=== PATIENT | female | born 1960 | race Caucasian/White ===

== ENCOUNTER → 2016-05-31 | Outpatient (CLI) | payer BC ==
[~2016-05-31] MED LIST: ASPI325T PO; COMMODE 3-IN-11 MIS; ENOX40P SQ; HYDR-3366 PO; SOMA350T PO; SUBO2MIS SL; WALKER WHEELS/F1 MIS; XANA2TAB2 PO; Z.0.NO CURRENT MEDS
--- NOTE | 2016-05-31 11:40 | RADRPT ---
EXAM DATE/TIME: 05/31/2016 11:04 [facility] COMPARISON: No previous studies available for comparison. INDICATIONS : Evaluate for pnuemothorax, pneumonia, or communicable diseases. Pre op for hip replacement. MEDICAL HISTORY : None. SURGICAL HISTORY : None. ENCOUNTER: Initial ACUITY: 1 day PAIN SCORE: 0/10 LOCATION: Bilateral chest FINDINGS: PA and lateral views of the chest demonstrate the lungs to be symmetrically aerated without evidence of mass, infiltrate or effusion. The cardiomediastinal contours are unremarkable. Osseous structure s are intact. CONCLUSION: No acute disease. Fareed Sesay MD FACR on May 31, 2016 at 11:38 Board Certified Radiologist. This report was verified electronically.
--- NOTE | 2016-06-01 10:46 | EKG ---
Date Performed: 05/31/2016 Time Performed: 12:08:48 PTAGE: 55 years EKG: Sinus bradycardia. Normal ECG except for rate NO PREVIOUS TRACING DOCTOR: Robles Brown Interpretating Date/Time 06/01/2016 10:44:12
== END ==
LOC: HRAD 10:39
PROVIDERS: ATTEND Orthopaedic Surgery
DX: Z01.810 Encounter for preprocedural cardiovascular examination (principal); R00.1 Bradycardia, unspecified
CPT/HCPCS: 71020; 93005

== ENCOUNTER 2016-06-06 14:54 | Inpatient (IN) | payer BC ==
[~2016-06-06] VITALS: Ht 152.4 cm; Wt 92.6 kg
[~2016-06-06 14:54] MED LIST changes: -ASPI325T PO; -COMMODE 3-IN-11 MIS; -ENOX40P SQ; -HYDR-3366 PO; -SUBO2MIS SL; -WALKER WHEELS/F1 MIS; -Z.0.NO CURRENT MEDS
[2016-06-07] MEDS ORDERED: ceFAZolin 2 GM PREMIX 50 ML ONE (10:46)
[2016-06-07] MEDS ORDERED: SUBO2MIS SL (10:47)
[2016-06-07] MEDS ORDERED: SODIUM CHLOR 0.9% 250 ML INJ 250 ML ONE (10:47)
[2016-06-07] MEDS ORDERED: VANCOMYCIN HCL 1000 MG VIAL ONE (10:47)
[2016-06-07 10:52] VITALS: BP 183/97; PULSE 80; RESP 20; TEMP 97.1; O2SAT 100
[2016-06-07] MEDS ORDERED: DEXAMETHASONE SOD PHOS 20 MG/5 ML VIAL ONE (10:57)
[2016-06-07] MEDS: POVIDONE IODINE 7.5% SCRUB 118 ML BOTTLE TOP SCH (11:00)
[2016-06-07] MEDS ORDERED: FAMOTIDINE 20 MG/2 ML VIAL ONE ×2 (11:44→12:30)
[2016-06-07] MEDS ORDERED: VANCOMYCIN 1000 MG/NS 250 ML (for <70 kg) IV SCH ×2 (11:45)
[2016-06-07] MEDS ORDERED: ceFAZolin 2 GM PREMIX 50 ML IV SCH (11:45)
[2016-06-07] MEDS ORDERED: MIDAZOLAM HCL 5 MG/5 ML VIAL ONE (11:49)
[2016-06-07] MEDS ORDERED: PROPOFOL 200 MG/20 ML AMP IV ONE (12:14)
[2016-06-07] MEDS ORDERED: NEOSTIGMINE 3 MG/3 ML SYR IV ONE (12:14)
[2016-06-07] MEDS ORDERED: ONDANSETRON HCL 4 MG/2 ML VIAL IV PUSH ONE (12:14)
[2016-06-07] MEDS ORDERED: LACTATED RINGER'S 1000 ML INJ 1,000 ML IV ONE (12:14)
[2016-06-07] MEDS ORDERED: ACETAMINOPHEN 1000 MG/100 ML VIAL IV ONE (12:29)
[2016-06-07] MEDS ORDERED: fentaNYL CITRATE 250 MCG/5 ML AMP ONE ×2 (12:30→13:07)
[2016-06-07] MEDS ORDERED: DEXAMETHASONE SOD PHOS 20 MG/5 ML VIAL IV SCH (12:45)
[2016-06-07] MEDS: EXPAREL PERI-ARTICULAR INJECTION (TOTAL VOL. 60 ML) P-ARTICULR SCH ×4 (13:00→13:27)
[2016-06-07] MEDS: TRANEXAMIC ACID INJ 906 MG in SODIUM CHLORIDE 0.9% INJ 100 ML IV SCH ×2 (13:00→13:02)
[2016-06-07] MEDS ORDERED: KETAMINE HCL 500 MG/5 ML VIAL ONE (13:07)
[2016-06-07] MEDS ORDERED: GENTAMICIN SULFATE 80 MG/2 ML VIAL ONE (13:08)
[2016-06-07] MEDS ORDERED: diphenhydrAMINE HCL 50 MG/ML VIAL IV PRN (14:30)
[2016-06-07] MEDS ORDERED: MAGNESIUM HYDROXIDE SUSP 30 ML CUP PO PRN (14:30)
[2016-06-07] MEDS ORDERED: Post-op Orders (for Pharmacy) MISC XX ONE (14:30)
[2016-06-07] MEDS ORDERED: CARISOPRODOL 350 MG TAB PO PRN (14:30)
[2016-06-07] MEDS ORDERED: ONDANSETRON HCL 4 MG/2 ML VIAL IVP PRN (14:30)
[2016-06-07] MEDS ORDERED: ALUMINUM/MAGNESIUM/SIMETH 30 ML CUP PO PRN (14:30)
[2016-06-07] MEDS ORDERED: NALOXONE HCL 0.4 MG/ML AMP IV PRN (14:30)
[2016-06-07] MEDS ORDERED: MORPHINE SULFATE 4 MG/ML INJ IV PUSH PRN (14:30)
[2016-06-07] MEDS ORDERED: ZOLPIDEM TARTRATE 5 MG TAB PO PRN (14:30)
[2016-06-07] MEDS ORDERED: BISACODYL 10 MG SUPP PR PRN (14:30)
[2016-06-07] MEDS ORDERED: SODIUM CHLORIDE 0.9% FLUSH 5 ML FLUSH IVF PRN (14:30)
--- NOTE | 2016-06-07 14:32 | PD.OP ---
cc: Fawad James MD Operative Report Date of Surgery: Jun 07, 2016 Preoperative Diagnosis: Right hip severe osteoarthritis Postoperative Diagnosis: Same Procedure: Right total hip arthroplasty, posterior approach Anesthesia: Gen. Surgeon: Fawad James Pen Or Pencil Assembly Machine Operator(s): WALDO Felder The surgical procedure was assisted by my Advanced Registered Nurse Practitioner. My MILLINERY SALESPERSON presence was necessary throughout this case for the manipulation and positioning of the surgical extremity. My MILLINERY SALESPERSON was assisting me throughout the duration of this procedure. The skill set of an Advance Registered Nurse Practitioner was medically necessary to complete this procedure. During the surgical case, the surgical services asst was working at the back table and the Advance Registered Nurse Practitioner was directly assisting me. Operation and Findings: IMPLANT DESCRIPTION: 1. Corail femoral stem size 11, no collar, standard offset. 2. Gription acetabulum, 52, no hole, with +4, 10 elevated ALTRX liner. 3, ceramic femoral head, 36, +1.5 ESTIMATED BLOOD LOSS: 300 cc. JUSTIFICATION FOR PROCEDURE: This patient has failed conservative management of her right hip osteoarthritis. See the conservative measures pathway form that is in the chart describing the nonoperative measures that were undertaken prior to consideration of surgical management. The patient understands the risks of surgery include but are not limited to injury to nerves, blood vessels, bleeding , infection, leg length discrepancy, continued pain, inability to ambulate, DVT , pulmonary embolus, pneumonia, stroke, heart attack, and . PROCEDURE: The patient was brought back to the operative theatre. Adequate anesthesia was obtained. The patient received intravenous Ancef and vancomycin. The patient was carefully placed on the operative table in the lateral decubitus position with an axillary roll and a well-padded down leg. The lower extremity was prepped and draped in the usual sterile fashion. We proceeded with a standard curvilinear incision centered around the tip of the greater trochanter. We then dissected through the deep fascia and placed a Charnley retractor protecting the sciatic nerve. The greater trochanteric bursa was reflected. We then incised through the piriformis attachment and tagged this with a #2 FiberWire. We then incised through the capsule in a T- shaped fashion and tagged this with a #2 FiberWire as well. An osteotomy was performed through the femoral neck, and the head was removed and inspected. It was found to have severe osteoarthritis. Remnants of the labrum were resected We then reamed the acetabulum up to a size 52. We trialed this acetabulum and then placed the final component into the appropriate anteversion and inclination. A manhole cover was applied. We then applied the degree elevated liner in the posterior superior position. The proximal femur was prepared with a rongeur, then a box osteotome, then a canal finder followed by a lateralizing reamer. We sequentially broached the proximal femur. We calcar planed the proximal femur and irrigated removing any remnants of the bone. We trialed the hip with the broach in place. The final femoral stem was impacted into position. Leg lengths were evaluated. We evaluated stability of the hip with the hip in the "position of sleep" and the hip flexed up to 90 and internally rotated. We additionally tested both a "shuck" test and hip extension, confirming there was no undue tension while flexing the knee to 90 during full hip extension. The final bipolar head was impacted and the hip was reduced. Once again we irrigated. We then repaired the capsule and the piriformis with the FiberWire suture. The deep fascia was closed with a #2 Stratafix, followed by 2-0 Vicryl in the skin and jesus. The post-op plan is to weight-bear as tolerated. We will follow posterior total hip precautions, including the use of a canvas knee splint. DVT prophylaxis will be performed with Nuzhat, CHANO flores, early mobilization, and Lovenox followed by aspirin. Fawad James MD Jun 07, 2016 14:32
[2016-06-07] MEDS ORDERED: ENOX40P SQ (14:33)
[2016-06-07] MEDS ORDERED: ASPI325T PO (14:33)
[2016-06-07] MEDS ORDERED: HYDR-3366 PO (14:33)
[2016-06-07] MEDS ORDERED: DO NOT ADM ANY ANTICOAGULANT DRUGS XX PRN (14:55)
[2016-06-07] MEDS: SODIUM CHLOR 0.9% 1000 ML INJ 1,000 ML IV SCH (15:00)
[2016-06-07] MEDS ORDERED: *MEPERIDINE 25 MG INJ VIAL PERIprocedural Use ONLY ONE (15:04)
[2016-06-07] MEDS ORDERED: *HYDROmorphone PF 1 MG VIAL PERIprocedural Use ONLY ONE ×2 (15:11→15:27)
[2016-06-07] MEDS ORDERED: *hydrOXYzine 25 MG VIAL PERIprocedural Use ONLY IM ONE (15:27)
[2016-06-07] MEDS ORDERED: BUPRENORPHINE NALOXONE SL PRN (15:45)
--- NOTE | 2016-06-07 16:15 | HHI.DCPOC ---
Discharge Care Plan Diagnosis: (1) Status post total hip replacement, right (2) Osteoarthritis of right hip Your Health Problems Are: Difficulty with ADL Goals to Promote Your Health * To prevent worsening of your condition and complications * To maintain your health at the optimal level Directions to Meet Your Goals Take your medications as prescribed Follow your dietary instruction Follow activity as directed Keep your appointments as scheduled Take your immunizations and boosters as scheduled If your symptoms worsen call your PCP, if no PCP go to Urgent Care Center or Emergency Room Smoking is Dangerous to Your Health. Avoid second hand smoke Call the 24-hour hour crisis hotline for domestic abuse at [facility] Jun 07, 2016 16:14
--- NOTE | 2016-06-07 16:16 | HHI.FF ---
Face to Face Verification Diagnosis: (1) Osteoarthritis of right hip (2) Status post total hip replacement, right Physical Therapy Gait training, Transfer training, bed to chair Hip: Total hip, Posterior hip precautions Right LE Weight Bearing: WB as tolerated Right LE Range of Motion: Active ROM Nursing Nursing: Sam teaching, Dressing changes Dressing Changes: Daily dressing change I have seen patient Jackie Olsen on 06/07/16. My clinical findings support the need for the requested home health care services because: Limited ability to care for self High risk of falls I certify that my clinical findings support that this patient is homebound because: Post-op weakness Unsteady gait/balance Berry Sanabria Jun 07, 2016 16:15
[2016-06-07] MEDS ORDERED: WALKER WHEELS/F1 MIS (16:17)
[2016-06-07] MEDS ORDERED: COMMODE 3-IN-11 MIS (16:17)
--- NOTE | 2016-06-07 16:39 | RADRPT ---
EXAM DATE/TIME: 06/07/2016 15:09 [facility] COMPARISON: No previous studies available for comparison. INDICATIONS : Post total right hip. MEDICAL HISTORY : None. SURGICAL HISTORY : Total right hip ENCOUNTER: Initial ACUITY: 1 day PAIN SCORE: 10/10 LOCATION: Right hip FINDINGS: Patient is status post placement of a right hip prosthesis. There is good position and alignment of t he prosthesis and bony structures. The bony structures are grossly intact. Postsurgical changes are p resent. CONCLUSION: Good position and alignment on this postoperative examination. Jonatan Del Toro MD on June 07, 2016 at 16:37 Board Certified Radiologist. This report was verified electronically.
[2016-06-07] MEDS ORDERED: TRANEXAMIC ACID INJ 906 MG in SODIUM CHLORIDE 0.9% INJ 100 ML IV SCH (17:00)
[2016-06-07] MEDS ORDERED: DIMETHICONE/OXYBENZONE/PADMIATE LIP BALM 4.25 GM ONE (18:27)
[2016-06-07] MEDS: ACETAMINOPHEN/HYDROcodone 325 MG/10 MG TAB PO PRN ×2 (18:30→23:15)
[2016-06-07 20:00] VITALS: BP 144/79; PULSE 98; RESP 16; TEMP 97.4; O2SAT 98
[2016-06-07] MEDS: ALPRAZolam 1 MG TAB PO SCH (20:13)
[2016-06-07] MEDS: SODIUM CHLORIDE 0.9% FLUSH 5 ML FLUSH IVF SCH (20:14)
[2016-06-08] VITALS (7 sets, daily range): BP systolic 105–127; BP diastolic 60–80; PULSE 79–97; RESP 16–18; TEMP 97.5–99.8; O2SAT 95–98
[2016-06-08] MEDS: SODIUM CHLOR 0.9% 1000 ML INJ 1,000 ML IV SCH ×3 (01:00→20:06)
[2016-06-08 05:17] LABS: HEMATOCRIT 30.8 % (35.0-46.0); MEAN CELL VOLUME 87.5 FL (80.0-100.0); MEAN CORPUSCULAR HEMOGLOBIN 28.8 PG (27.0-34.0); MEAN CORPUSCULAR HGB CONC 32.9 % (32.0-36.0); PLATELET COUNT 248 TH/MM3 (150-450); RED BLOOD COUNT 3.52 MIL/MM3 (4.00-5.30); RED CELL DISTRIBUTION WIDTH 13.7 % (11.6-17.2); REVIEW FLAG FINAL; WHITE BLOOD COUNT 11.1 TH/MM3 (4.0-11.0)
[2016-06-08] MEDS ORDERED: DEXAMETHASONE SOD PHOS 20 MG/5 ML VIAL IV ONE (07:45)
[2016-06-08] MEDS: ACETAMINOPHEN/HYDROcodone 325 MG/10 MG TAB PO PRN ×4 (08:43→22:33)
[2016-06-08] MEDS: ALPRAZolam 1 MG TAB PO SCH ×2 (08:43→20:07)
[2016-06-08] MEDS: SODIUM CHLORIDE 0.9% FLUSH 5 ML FLUSH IVF SCH ×2 (08:48→20:08)
--- NOTE | 2016-06-08 09:13 | PD.CONS ---
HPI Service [facility] Hospitalists Consult Requested By Dr. Fawad James Reason for Consult medical management. Primary Care Physician Chon Zhang M.D. Diagnoses: (1) Status post total hip replacement, right (2) Osteoarthritis of right hip History of Present Illness This is a 55-year-old white female who came into the hospital with severe osteoarthritis of her right hip. He was evaluated per Dr. Fawad James and received a right total hip arthroplasty. Patient states she has had long-term severe osteoarthritis which affected her ADLs. She has been medically managed for her pain, but failed at this point she had failed outpatient treatment. She states that before surgery she experienced severe stabbing pain in her lower back which radiated down her right leg. Patient states that she could not sit or stand for any length of time. Patient has been a long-term tobacco user but quit approximately 3 months ago. She is currently using the vapor apparatus with low amounts of nicotine A she did have a fall before coming into the hospital, but states no acute difference in her pain levels. Patient denies chest pain, no shortness of breath, appetite good, no change in weight gain or weight loss within the past year. Patient denies any fever, chills, no nausea or vomiting. Patient does have occasional bouts of heartburn. (Zina Nixon) Review of Systems ROS Limitations: Other (10 pt. review obtained with positives and negatives noted in the HPI.) (Zina Nixon) Past Family Social History Past Medical History Severe osteoarthritis GERD Depression and anxiety Varicose veins Right elbow lateral epicondylitis Right elbow osteoarthritis Obesity History of narcotic dependence Severe hip osteoarthritis Past Surgical History Hysterectomy Appendectomy 2 C-sections Wrist hand/ surgery Reported Medications Active Medications Acetaminophen (Ofirmev Inj) 1,000 mg STK-MED ONCE IV; Start 06/07/16 at 12:29; Stop 06/07/16 at 12:30; Status DC Acetaminophen/ Hydrocodone Bitart 2 tab 2 tab Q6H PRN PO Last administered on t 18:30; Admin Dose 2 TAB; Start 06/07/16 at 14:30 Acetaminophen/ Hydrocodone Bitart (Creighton 10-325 Mg) 1 tab Q4H PRN PO Last administered on 06/08/16 08:43; Admin Dose 1 TAB; Start 06/07/16 at 14:30 Al Hydrox/Mg Hydrox/Simethicone (Mag-Al Plus Susp Liq) 30 ml Q6H PRN PO; Start 06/07/16 at 14:30 Alprazolam (Xanax) 2 mg BID PO Last administered on 06/08/16t 08:43; Admin Dose 2 MG; Start 06/07/16 at 21:00 Bisacodyl (Dulcolax Supp) 10 mg DAILY PRN NH; Start 06/07/16 at 14:30 Bupivacaine Liposome/Sodium Chloride (Exparel Pf 1.3% Inj/NS Inj) 60 ml @ 120 mls/hr ONCE P-ARTICULR; Start 06/07/16 at 13:00; Stop 06/08/16 at 19:00 Carisoprodol (Soma) 350 mg QID PRN PO; Start 06/07/16 at 14:30 Cefazolin Sodium/ Dextrose (Ancef 2 Gm Premix) 50 ml @ As Directed STK-MED ONCE .ROUTE; Start 06/07/16 at 10:46; Stop 06/07/16 at 10:47; Status DC Cefazolin Sodium/ Sodium Chloride (Ancef Inj/NS Inj) 100 ml @ 200 mls/hr Q6H IV Last administered on 06/08/16t 05:49; Admin Dose 200 MLS/HR; Start 06/07/16 at 17:00; Stop 06/08/16 at 05:29; Status DC Dexamethasone Sodium Phosphate (Decadron Inj) 10 mg ONCE ONCE IV Last administered on 06/08/16t 07:45; Admin Dose 10 MG; Start 06/08/16 at 07:45; Stop 06/08/16 at 07:46; Status DC Dexamethasone Sodium Phosphate (Decadron Inj) 20 mg STK-MED ONCE .ROUTE; Start 06/07/16 at 10:57; Stop 06/07/16 at 10:58; Status DC Diphenhydramine HCl (Benadryl Inj) 25 mg Q6H PRN IV; Start 06/07/16 at 14:30 Docusate Sodium (Colace) 100 mg BID PO; Start 06/08/16 at 21:00 Enoxaparin Sodium (Lovenox Inj) 40 mg Q24H SQ; Start 06/08/16 at 14:00; Stop at 14:01 Famotidine (Pepcid Inj) 20 mg STK-MED ONCE .ROUTE Last administered on 11:44; Admin Dose 20 MG; Start 06/07/16 at 11:44; Stop 06/07/16 at 11:45; Status DC Famotidine (Pepcid Inj) 20 mg STK-MED ONCE .ROUTE; Start 06/07/16 at 12:30; Stop 06/07/16 at 12:31; Status DC Fentanyl Citrate (fentaNYL INJ) 200 mcg STK-MED ONCE .ROUTE; Start 06/07/16 at 11:44; Stop 06/07/16 at 11:45; Status DC Fentanyl Citrate (fentaNYL INJ) 250 mcg STK-MED ONCE .ROUTE; Start 06/07/16 at 12:30; Stop 06/07/16 at 12:31; Status DC Fentanyl Citrate (fentaNYL INJ) 250 mcg STK-MED ONCE .ROUTE; Start 06/07/16 at 13:07; Stop 06/07/16 at 13:08; Status DC Gentamicin Sulfate (Gentamicin Inj) 240 mg STK-MED ONCE .ROUTE Last administered on 06/07/16 13:27; Admin Dose 240 MG; Start 06/07/16 at 13:08; Stop 06/07/16 at 13:09; Status DC Hydromorphone HCl (*DILAUDID PF INJ PERIprocedural ONLY) 1 mg STK-MED ONCE .ROUTE Last administered on 06/07/16 15:11; Admin Dose 1 MG; Start 06/07/16 at 15:11; Stop 06/07/16 at 15:12; Status DC Hydromorphone HCl (*DILAUDID PF INJ PERIprocedural ONLY) 1 mg STK-MED ONCE .ROUTE Last administered on 06/07/16 15:27; Admin Dose 1 MG; Start 06/07/16 at 15:27; Stop 06/07/16 at 15:28; Status DC Hydroxyzine HCl (*VISTARIL INJ PERIprocedural ONLY) 25 mg STK-MED ONCE IM Last administered on 06/07/16 15:27; Admin Dose 25 MG; Start 06/07/16 at 15:27; Stop 06/07/16 at 15:28; Status DC IV Flush (NS Flush) 2 ml UNSCH PRN IVF; Start 06/07/16 at 14:30 IV Flush 2 ml 2 ml BID IVF Last administered on 06/08/16 08:48; Admin Dose 2 ML ; Start 06/07/16 at 21:00 Ketamine HCl (Ketalar Inj) 500 mg STK-MED ONCE .ROUTE; Start 06/07/16 at 13:07; Stop 06/07/16 at 13:08; Status DC Magnesium Hydroxide (Milk Of Magnesia Liq) 30 ml DAILY PRN PO; Start 06/07/16 at 14:30 Meperidine HCl (*DEMEROL INJ PERIprocedural ONLY) 25 mg STK-MED ONCE .ROUTE Last administered on 06/07/16 15:04; Admin Dose 25 MG; Start 06/07/16 at 15:04 ; Stop 06/07/16 at 15:05; Status DC Midazolam HCl (Versed Inj) 5 mg STK-MED ONCE .ROUTE Last administered on 11:44; Admin Dose 5 MG; Start 06/07/16 at 11:49; Stop 06/07/16 at 11:50; Status DC Miscellaneous Information ALL NURSING DEPARTME... UNSCH PRN XX; Start 06/07/16 at 14:55; Stop 06/08/16 at 14:54 Miscellaneous Information (Post-op Orders (for Pharmacy)) STAT ONCE XX; Start 06/07/16 at 14:30; Stop 06/07/16 at 15:35; Status DC Morphine Sulfate (Morphine Inj) 2 mg Q3H PRN IV PUSH; Start 06/07/16 at 14:30 Multivitamins/ Minerals Therapeutic (Theragran M Tab) 1 tab BID PO; Start at 21:00; Stop 08/07/16 at 20:59 Naloxone HCl (Narcan Inj) 0.4 mg UNSCH PRN IV; Start 06/07/16 at 14:30 Ondansetron HCl (Zofran Inj) 4 mg Q6H PRN IVP; Start 06/07/16 at 14:30 Oxybenzone/ Padimate O/ Dimethicone (Blistex Lip [place]) 4.25 applic STK-MED ONCE .ROUTE; Start 06/07/16 at 18:27; Stop 06/07/16 at 18:28; Status DC Patient Own Medication PT OWN MED: (Buprenorphine-Naloxo... BID PRN SL; Start 06/07/16 at 15:45 Povidone Iodine 1 applic 1 applic ONCE TOP Last administered on 06/07/16 11:00 ; Admin Dose 1 APPLIC; Start 06/07/16 at 11:45; Stop 06/10/16 at 11:44 Sodium Chloride (NS 1000 ml Inj) 1,000 ml @ 100 mls/hr Q10H IV Last administered on 06/08/16 01:00; Admin Dose 100 MLS/HR; Start 06/07/16 at 15:00 Sodium Chloride (NS 250 ml Inj) 250 ml @ As Directed STK-MED ONCE .ROUTE; Start 06/07/16 at 10:47; Stop 06/07/16 at 10:48; Status DC Tranexamic Acid 906 mg/Sodium Chloride 109.06 ml @ 200 mls/ hr ONCE IV; Start 06/07/16 at 13:00; Stop 06/08/16 at 19:00 Tranexamic Acid/ Sodium Chloride (Cyklokapron Inj/ NS Inj) 109.06 ml @ 200 mls / hr UNSCH IV Last administered on 06/07/16 16:17; Admin Dose 200 MLS/HR; Start 06/07/16 at 17:00; Stop 06/07/16 at 23:00; Status DC Vancomycin HCl 1000 mg 1,000 mg STK-MED ONCE .ROUTE; Start 06/07/16 at 10:47; Stop 06/07/16 at 10:48; Status DC Zolpidem Tartrate (Ambien) 5 mg HS PRN PO; Start 06/07/16 at 14:30 (Zina Nixon) Allergies: Coded Allergies: No Known Allergies (Verified , 06/07/16) Family History Patient was adopted and has no knowledge of her family history. Social History Previous long-term tobacco use, quit approximately 3 months ago, using vapor products. Lives at home with her . Denies any alcohol or illicit drug use. (Zina Nixon) Physical Exam Vital Signs Vital Signs Date Time Temp Pulse Resp B/P Pulse Ox O2 Delivery O2 Flow Rate FiO2 06/08/16 05:07 98.7 81 17 122/66 97 06/08/16 00:00 99.8 97 17 108/60 96 06/07/16 20:00 97.4 98 16 144/79 98 06/07/16 17:45 62 16 154/93 99 Nasal Cannula 3 06/07/16 16:45 55 16 158/87 99 Nasal Cannula 3 06/07/16 15:45 51 16 168/86 99 Nasal Cannula 3 06/07/16 15:30 51 16 159/86 99 Nasal Cannula 3 06/07/16 15:15 50 16 159/86 99 Nasal Cannula 3 06/07/16 14:59 97.5 55 16 145/87 99 Nasal Cannula 3 06/07/16 10:52 97.1 80 20 183/97 100 Physical Exam GENERAL: This is a well-nourished, well-developed obese patient, in no apparent distress at rest. SKIN: No rashes, ecchymoses or lesions. Cool and dry. HEAD: Atraumatic. Normocephalic. No temporal or scalp tenderness. EYES: Pupils 2mm, equal round and reactive. Extraocular motions intact. No scleral icterus. No injection or drainage. ENT: Nose without bleeding, purulent drainage or septal hematoma. Throat without erythema, tonsillar hypertrophy or exudate. Uvula midline. Airway patent. NECK: Trachea midline. No JVD or lymphadenopathy. Supple, nontender CARDIOVASCULAR: Regular rate and rhythm with soft gr 2 systolic murmur, no gallops, or rubs. No pedal edema RESPIRATORY: Clear to auscultation. Breath sounds equal bilaterally. Few wheezes noted in upper anterior lungs. GASTROINTESTINAL: Abdomen soft, obese, non-tender, nondistended. No hepato- splenomegaly, or palpable masses. No guarding. MUSCULOSKELETAL: Extremities without clubbing, cyanosis, or edema. No joint tenderness, effusion, or edema noted. No calf tenderness. Dressing and upper leg extremity intact with bleeding or drainage noted. NEUROLOGICAL: Awake and alert. Cranial nerves II through XII intact. Motor and sensory grossly within normal limits. Four out of 5 muscle strength in all muscle groups. Normal speech. Laboratory Laboratory Tests Test 06/07/16 06/08/16 10:44 04:50 Blood Type A POSITIVE Antibody Screen NEGATIVE White Blood Count 11.1 Red Blood Count 3.52 Hemoglobin 10.1 Hematocrit 30.8 Mean Corpuscular Volume 87.5 Mean Corpuscular Hemoglobin 28.8 Mean Corpuscular Hemoglobin 32.9 Concent Red Cell Distribution Width 13.7 Platelet Count 248 Mean Platelet Volume 8.1 (Zina Nixon) Result Diagram: 06/08/16 0450 Imaging Last Impressions Hip and Pelvis X-Ray 06/07/16 1423 Signed Impressions: Service Date/Time: Tuesday, June 07, 2016 15:09 - CONCLUSION: Good position and alignment on this postoperative examination. Jonatan Del Toro MD (Zina Nixon) A/P Assessment and Plan Severe osteoarthritis of right hip. Status post right hip arthroplasty. GERD History of tobacco abuse. History of depression and anxiety Obesity Medical management consultation for monitoring of labs, dietary needs, discharge planning and education for any supportive care needed. She is status post right hip arthroplasty and will benefit from physical therapy and occupational therapy. DVT prophylaxis in place We will add Protonix during hospital stay Monitor bowel regimen and add when necessary MOM. CBC BMP in the a.m. Patient has long-term history of tobacco abuse will add duo nebs when necessary. Encourage movement of extremities, turning and positioning in bed. Discharge Planning Home with , assistance from home health, and outpatient rehabilitation is her wishes. Discussed With: Other (senior manager mergers & acquisitions, patient, and Dr. Jacinto) (Zina Nixon) Assessment and Plan pt is seen & Examined d/w PT & her sig other at bedside d/w Zina cont current tx will f/u (Gloria Jacinto MD) Problem Qualifiers (1) Osteoarthritis of right hip: Qualified Code: M16.11 - Osteoarthritis of right hip, unspecified osteoarthritis type Zina Nixon Jun 08, 2016 09:13 Gloria Jacinto MD Jun 08, 2016 17:01
[2016-06-08] MEDS ORDERED: MAGNESIUM HYDROXIDE SUSP 30 ML CUP PO PRN (09:45)
[2016-06-08] MEDS ORDERED: RESP: ALBUTEROL 2.5 MG/IPRATROPIUM 0.5 MG NEB (PRN) NEB (09:45)
[2016-06-08] MEDS: PANTOPRAZOLE SOD 40 MG DELAYED RELEASE TAB PO SCH (10:00)
[2016-06-08] MEDS: POVIDONE IODINE 7.5% SCRUB 118 ML BOTTLE TOP SCH (11:45)
--- NOTE | 2016-06-08 12:32 | PD.ORT.PN ---
Subjective Post Op Day #: 1 Subjective Remarks The patient is resting in bed with little to no pain. Patient has voided and is ambulatory. Patient says that her walking is getting easier. Patient is very happy. Objective Vitals Vital Signs Date Time Temp Pulse Resp B/P Pulse Ox O2 Delivery O2 Flow Rate FiO2 06/08/16 08:58 98 21 06/08/16 08:00 98.3 87 18 127/65 95 06/08/16 05:07 98.7 81 17 122/66 97 06/08/16 00:00 99.8 97 17 108/60 96 06/07/16 20:00 97.4 98 16 144/79 98 06/07/16 17:45 62 16 154/93 99 Nasal Cannula 3 06/07/16 16:45 55 16 158/87 99 Nasal Cannula 3 06/07/16 15:45 51 16 168/86 99 Nasal Cannula 3 06/07/16 15:30 51 16 159/86 99 Nasal Cannula 3 06/07/16 15:15 50 16 159/86 99 Nasal Cannula 3 06/07/16 14:59 97.5 55 16 145/87 99 Nasal Cannula 3 I/O 06/07/16 06/07/16 06/07/16 06/08/16 06/08/16 06/08/16 07:00 15:00 23:00 07:00 15:00 23:00 Intake Total 1300 ml 840 ml 1050 ml Output Total 1050 ml 475 ml 600 ml Balance 250 ml 365 ml 450 ml Intake Oral 340 ml 150 ml IV Total 500 ml 900 ml Other 1300 ml Output Urine Total 475 ml 600 ml Estimated Blood Loss 800 ml Other 250 ml # Bowel Movements 0 Result Diagram: 06/08/16 0450 Imaging Last 24 hours Impressions Hip and Pelvis X-Ray 06/07/16 1423 Signed Impressions: Service Date/Time: Tuesday, June 07, 2016 15:09 - CONCLUSION: Good position and alignment on this postoperative examination. Jonatan Del Toro MD Procedures Right ARMAND (Posterior approach) Objective Remarks The patient's dressing was changed today with scant serosanguineous drainage. Incision is well approximated with surgical clips intact. No redness or s/s of infection. EHL/TA/G intact. 2+ pedal pulse. + SILT. Minimal swelling. Calf is soft and nontender. Assessment & Plan Ortho Post Op Day #: 1 Problem List: Assessment and Plan POD #1: Right ARMAND (posterior approach) 1. WBAT RLE 2. Lovenox for DVT prophylaxis 3. Ice to the right hip PRN' 4. Posterior hip precautions and CKS in bed 5. Anticipatory discharge home with home health on Sunday. Berry Sanabria Jun 08, 2016 12:32
[2016-06-08] MEDS: TRANEXAMIC ACID INJ 906 MG in SODIUM CHLORIDE 0.9% INJ 100 ML IV SCH (13:00)
[2016-06-08] MEDS: EXPAREL PERI-ARTICULAR INJECTION (TOTAL VOL. 60 ML) P-ARTICULR SCH ×2 (13:00)
[2016-06-08] MEDS: ENOXAPARIN SODIUM 40 MG/0.4 ML SYRINGE SQ SCH (13:18)
[2016-06-08] MEDS: MULTIVITAMINS/MINERALS THERAPEUTIC TAB PO SCH (20:07)
[2016-06-08] MEDS: DOCUSATE SODIUM 100 MG CAP PO SCH (20:07)
[2016-06-09] VITALS: BP 107/57; PULSE 92; RESP 16; TEMP 97.7; O2SAT 97
[2016-06-09] MEDS: ACETAMINOPHEN/HYDROcodone 325 MG/10 MG TAB PO PRN ×3 (04:39→14:38)
[2016-06-09 05:50] LABS: HEMATOCRIT 29.5 % (35.0-46.0); MEAN CORPUSCULAR HEMOGLOBIN 29.7 PG (27.0-34.0); PLATELET COUNT 239 TH/MM3 (150-450); RED BLOOD COUNT 3.28 MIL/MM3 (4.00-5.30); RED CELL DISTRIBUTION WIDTH 13.7 % (11.6-17.2); REVIEW FLAG FINAL; WHITE BLOOD COUNT 14.8 TH/MM3 (4.0-11.0)
[2016-06-09 05:59] LABS: BICARBONATE 27.9 MEQ/L (21.0-32.0); POTASSIUM 3.2 MEQ/L (3.5-5.1)
[2016-06-09] MEDS: SODIUM CHLOR 0.9% 1000 ML INJ 1,000 ML IV SCH (07:00)
[2016-06-09 08:00] VITALS: BP 122/76; PULSE 85; RESP 16; TEMP 97.6; O2SAT 96
[2016-06-09] MEDS: DOCUSATE SODIUM 100 MG CAP PO SCH (08:27)
[2016-06-09] MEDS: ALPRAZolam 1 MG TAB PO SCH (08:28)
[2016-06-09] MEDS: PANTOPRAZOLE SOD 40 MG DELAYED RELEASE TAB PO SCH (08:28)
[2016-06-09] MEDS: MULTIVITAMINS/MINERALS THERAPEUTIC TAB PO SCH (08:28)
[2016-06-09] MEDS: SODIUM CHLORIDE 0.9% FLUSH 5 ML FLUSH IVF SCH (08:29)
[2016-06-09] MEDS ORDERED: POTASSIUM CL 40 MEQ/30 ML LIQ UDC PO ONE (11:15)
--- NOTE | 2016-06-09 11:29 | HHI.PR ---
Subjective Remarks chest pain no shortness of breath no diarrhea No constipation Feels better today (Zina Nixon) Objective Objective Results - Vital Signs Date Time Temp Pulse Resp B/P Pulse Ox O2 Delivery O2 Flow Rate FiO2 06/09/16 08:00 97.6 85 16 122/76 96 06/09/16 00:00 97.7 92 16 107/57 97 06/08/16 20:00 97.5 79 16 105/60 98 06/08/16 16:00 98.0 82 18 119/80 95 06/08/16 12:00 98.2 85 18 120/72 95 I/O 06/08/16 06/08/16 06/08/16 06/09/16 06/09/16 06/09/16 07:00 15:00 23:00 07:00 15:00 23:00 Intake Total 1050 ml 620 ml 240 ml 240 ml Output Total 600 ml Balance 450 ml 620 ml 240 ml 240 ml Intake Oral 150 ml 620 ml 240 ml 240 ml IV Total 900 ml Output Urine Total 600 ml # Voids 4 1 2 # Bowel Movements 1 0 (Zina Nixon) Result Diagram: 06/09/16 0511 06/09/16 0511 ROS General: Weakness, Other (12 point ROS done. Positive noted minimal generalized weakness. All other review negative.) (Zina Nixon) Physical Exam Physical Exam PHYSICAL EXAMINATION GENERAL: This is a well nourished female sitting up in chair. who appears to be in no acute distress at rest. She is alert and awake, and responds to appropriately to questions. HEAD: Normocephalic without any lesion or mass noted. Facial features appear symmetric. OROPHARYNGEAL: Oropharynx without erythema or edema. NECK: Supple. No nuchal rigidity or lymphadenopathy. Trachea midline without deviation. CARDIAC: Regular rhythm, regular rate, S1 and S2 are heard. No Murmur ; no gallops or rubs. LUNGS: Clear to auscultation bilaterally. No wheeze, rhonchi or rales heard. No use of accessory muscles on inspiration or expiration. ABDOMEN: Round, Soft, nontender, no organomegaly or masses. Bowel sounds are heard in all four quadrants. No rebound. No guarding. EXTREMITIES: No pedal edema. Pulses equal bilateral. No cyanosis. New clean dry dressing on right hip. Mild amount of bruising and edema on the anterior aspect of incision. No bleeding upper leg splint WHILE patient is up in chair. NEUROLOGICAL: Patient mood and affect appropriate without agitation. No focal deficit SKIN:Warm and moist, dry, pale without rashes. (Zina Nixon) A/P Assessment and Plan Severe osteoarthritis of right hip. Status post right hip arthroplasty. Hypokalemia GERD History of tobacco abuse. History of depression and anxiety Obesity Medical management consultation for monitoring of labs, dietary needs, discharge planning and education for any supportive care needed. She is status post right hip arthroplasty . PT in place. Potassium supplement given today before discharge. DVT prophylaxis PUD prophylaxis Protonix during hospital stay Monitor bowel regimen and add when necessary MOM. Currently no problems. DUOnebs prn Encourage movement of extremities, turning and positioning in bed. Plan discharge after 1 PM today per ortho though recommendation. Prescriptions on chart Lovenox [place] when necessary and aspirin. Aspirin is to be started when the Lovenox injections complete. Follow-up with PCP after discharge. Right hip wound incision with small amount of edema and bruising, the patient denies any acute pain. Safety precautions, up in chair. Stretched to call for any needs. She states she has walker at home Discharge Planning Home with , assistance from home health, and outpatient rehabilitation is her wishes. Plan according to Asa RODRIGUEZ of Dr. James discharge will be today after 1:00. Discussed With: Nurse, Family, Other (internet and e business project manager, patient, and Dr. Jacinto. Patient seen on his behalf) (Zina Nixon) Assessment and Plan pt is seen & examined d/w PT rd ocampo above cont current tx medically stable for d/c will sign off/ available prn (Gloria Jacinto MD) Zina Nixon Jun 09, 2016 11:29 Gloria Jacinto MD Jun 09, 2016 12:43
[2016-06-09] MEDS: POVIDONE IODINE 7.5% SCRUB 118 ML BOTTLE TOP SCH (11:45)
[2016-06-09 12:00] VITALS: BP 112/60; PULSE 97; RESP 16; TEMP 97.6; O2SAT 97
[2016-06-09] MEDS: ENOXAPARIN SODIUM 40 MG/0.4 ML SYRINGE SQ SCH (13:36)
--- NOTE | 2016-06-09 14:46 | PD.ORT.PN ---
Subjective Post Op Day #: 2 Subjective Remarks The patient is OOB in chair, dressed, and ready for discharge home with home health today. Patient notes minimal pain today. Objective Vitals Vital Signs Date Time Temp Pulse Resp B/P Pulse Ox O2 Delivery O2 Flow Rate FiO2 06/09/16 08:00 97.6 85 16 122/76 96 06/09/16 00:00 97.7 92 16 107/57 97 06/08/16 20:00 97.5 79 16 105/60 98 06/08/16 16:00 98.0 82 18 119/80 95 I/O 06/08/16 06/08/16 06/08/16 06/09/16 06/09/16 06/09/16 07:00 15:00 23:00 07:00 15:00 23:00 Intake Total 1050 ml 620 ml 240 ml 240 ml Output Total 600 ml Balance 450 ml 620 ml 240 ml 240 ml Intake Oral 150 ml 620 ml 240 ml 240 ml IV Total 900 ml Output Urine Total 600 ml # Voids 4 1 2 # Bowel Movements 1 0 Result Diagram: 06/09/16 0511 06/09/16 0511 Imaging Last 24 hours Impressions Hip and Pelvis X-Ray 06/07/16 1423 Signed Impressions: Service Date/Time: Tuesday, June 07, 2016 15:09 - CONCLUSION: Good position and alignment on this postoperative examination. Jonatan Del Toro MD Procedures Right ARMAND (Posterior approach) Objective Remarks The patient's dressing is C/D/I. EHL/TA/G intact. 2+ pedal pulse. + SILT. Minimal swelling. Calf is soft and nontender. Assessment & Plan Ortho Post Op Day #: 2 Problem List: Assessment and Plan POD #2: Right ARMAND (posterior approach) 1. WBAT RLE 2. Lovenox for DVT prophylaxis 3. Ice to the right hip PRN' 4. Posterior hip precautions and CKS in bed 5. Anticipatory discharge home with home health today. Berry Sanabria Jun 09, 2016 14:46
--- NOTE | 2016-06-11 18:57 | HHI.DS ---
Discharge Summary Admission Date Jun 07, 2016 at 10:12 Discharge Date: Jun 09, 2016 Admitting Diagnosis OA of the right hip Staus post right ARMAND Diagnosis: (1) Osteoarthritis of right hip Diagnosis: Principal (2) Status post total hip replacement, right Diagnosis: Principal Procedures Right ARMAND (Posterior approach) Brief History This is a 55 year old female patient with severe OA of the right hip CBC/BMP: 06/09/16 0511 06/09/16 0511 Significant Findings Laboratory Tests Test 06/09/16 05:11 White Blood Count 14.8 TH/MM3 (4.0-11.0) Red Blood Count 3.28 MIL/MM3 (4.00-5.30) Hemoglobin 9.8 GM/DL (11.6-15.3) Hematocrit 29.5 % (35.0-46.0) Potassium Level 3.2 MEQ/L (3.5-5.1) Chloride Level 108 MEQ/L (98-107) PE at Discharge The patient's dressing is C/D/I. EHL/TA/G intact. 2+ pedal pulse. + SILT. Minimal swelling. Calf is soft and nontender. Hospital Course The patient was admitted to the hospital with severe OA of the right hip to have a right ARMAND. The patient's surgery went well with no complication. The patient had a normal hospital course. The patient is WBAT. The patient was discharged home with home health and will f/u with Dr. James in 1-2 weeks. Pt Condition on Discharge: Stable Discharge Disposition: Disch w/ Home Health Serv Discharge Instructions Diet Instructions: As Tolerated, No Restrictions Activities You Can Perform: Weight Bearing as Saroj Activities to Avoid: Strenuous Activity Follow up Referrals: Orthopedics with Fawad James MD PCP Follow-up [facility] with [facility] ([phone]) New Medications: Aspirin (Aspirin) 325 Mg Tab 325 MG PO DAILY Start Aspirin after Lovenox is completed. Prevent Blood Clot # 30 Ref 0 TAB Commode 3-in-1 (Commode 3-in-1) 1 Mis Mis 1 EA .ROUTE DIRECTED #1 Ref 0 EA Enoxaparin Inj (Lovenox Inj) 40 Mg/0.4 Ml Syr 40 MG SQ DAILY Start Aspirin after Lovenox is completed. Blood Clot Prevention # 10 Ref 0 SYRINGE Hydrocodone-Acetaminophen ([place]) 10-325 Mg Tab 1-2 TAB PO Q4H PRN PAIN #60 Ref 0 TAB Walker with Front Wheels (Walker with Front Wheels) 1 Mis Mis 1 EA .ROUTE DIRECTED #1 Ref 0 EA Continued Medications: Alprazolam (Xanax) 2 Mg Tab 2 MG PO BID ANXIETY Ref 0 TAB Buprenorphine-Naloxone Sublingual Film (Suboxone Sublingual Film) 2-0.5 Mg Film 1 FILM SL BID Unique ID number required: PRN PAIN SCALE 1 TO 10 FILM Carisoprodol ([place]) 350 Mg Tab 350 MG PO QID PRN PAIN Ref 0 TAB Berry Sanabria Jun 11, 2016 18:57
== END 2016-06-09 15:25 | disposition home health service (06) | DRG 470 ==
LOC: HSDI 06-07 10:12 → N06A 06-07 19:46
PROVIDERS: ADMIT Orthopaedic Surgery; ATTEND Orthopaedic Surgery
PROC: 0SR904A Replacement of Right Hip Joint with Ceramic on Polyethylene Synthetic Substitute, Uncemented, Open Approach (ICD-10-PCS; principal; 2016-06-07 12:32)
DX: M16.11 Unilateral primary osteoarthritis, right hip (principal); E66.9 Obesity, unspecified; F32.9 Major depressive disorder, single episode, unspecified; F17.290 Nicotine dependence, other tobacco product, uncomplicated; K21.9 Gastro-esophageal reflux disease without esophagitis; I83.90 Asymptomatic varicose veins of unspecified lower extremity; F41.9 Anxiety disorder, unspecified; E87.6 Hypokalemia; Z68.39 Body mass index [BMI] 39.0-39.9, adult
CPT/HCPCS: 73502; 80048; 85027; 86850; 86900; 86901; 94150; C1776; C9290; J0131; J0690; J1100; J1170; J1580; J1650; J2175; J2250; J2405; J2710; J3010; J3370; J3410; J7030; J7050; J7120